=== PATIENT | female | born 2000 | race Caucasian/White ===

== ENCOUNTER 2022-04-20 05:35 | Inpatient (IN) ==
[2022-04-20] MEDS ORDERED: miSOPROStoL 25 MCG TABLET VG PRN (06:12)
[2022-04-20] MEDS ORDERED: Ondansetron 4 MG/2 ML VIAL IVP PRN (06:13)
[2022-04-20] MEDS ORDERED: Famotidine 20 MG/2 ML VIAL IVP PRN (06:13)
[2022-04-20] MEDS ORDERED: *HR* Nalbuphine 10 MG/ML AMPUL IV PRN (06:13)
[2022-04-20] MEDS ORDERED: Metoclopramide 10 MG/2 ML VIAL IVP PRN (06:13)
[2022-04-20] MEDS ORDERED: Lidocaine 1% 20 ML MDV INFILT PRN (06:13)
[2022-04-20] MEDS ORDERED: Penicillin G Potassium 5,000,000 UNIT in 0.9 % Sodium Chloride Mini Bag 100 ML IVPB ONE (06:13)
[2022-04-20] MEDS ORDERED: Azithromycin 500 MG in 0.9 % Sodium Chloride 250 ML IVPB PRN (06:13)
[2022-04-20] MEDS ORDERED: Naloxone 0.4 MG/ML INJ IVP PRN (06:13)
[2022-04-20] MEDS ORDERED: EPHEDrine 50 MG/ML VIAL IVP PRN (06:25)
[2022-04-20] MEDS: Ringers Solution, Lactated 1,000 ML IVC SCH ×3 (06:51→21:38)
[2022-04-20 07:04] LABS: Basophils % 0.3 %; Eosinophils # 0.1 K/mcL (0.0-0.6); Eosinophils % 1.1 %; Immature Granulocytes % 1.1 % (0-4); Lymphocytes # 2.8 K/mcL (0.6-4.6); Lymphocytes % 27.7 %; Mean Corpuscular HGB Conc 34.3 g/dL (31.6-35.5); Mean Corpuscular Volume 90.4 fL (83.0-100.0); Mean Platelet Volume 10.9 fL (9.4-12.4); Monocytes # 0.8 K/mcL (0.0-1.3); Monocytes % 8.1 %; Neutrophils # 6.2 K/mcL (1.6-8.9); Platelet Count 179 K/mcL (140-400); Red Blood Count 3.87 M/mcL (3.82-4.97); Red Cell Distribution Width 13.5 % (11.5-14.5); Segmented Neutrophils % 61.7 %
[2022-04-20 07:33] LABS: Influenza A PCR Negative (Negative); Influenza B PCR Negative (Negative); Resp. Syncytial Virus PCR Negative (Negative)
[2022-04-20 09:54] LABS: SARS-CoV-2 by PCR (In House) Positive (Negative)
[2022-04-20] MEDS: Penicillin G Potassium 2,500,000 UNIT/105 ML MLS IVPB SCH ×4 (10:46→22:49)
[2022-04-20 11:44] LABS: Amphetamine Screen,Urine Negative ng/mL (Cutoff=1000); Barbiturate Screen,Urine Negative ng/mL (Cutoff=200); Benzodiazepines Screen,Urine Negative ng/mL (Cutoff=200); Cannabinoid Screen,Urine Negative ng/mL (Cutoff = 50); Cocaine Screen,Urine Negative ng/mL (Cutoff= 300); Opiate Screen,Urine Negative ng/mL (Cutoff=300); Phencyclidine Screen,Urine Negative ng/mL (Cutoff=25)
[2022-04-20] MEDS ORDERED: miSOPROStoL 25 MCG TABLET PO STA (12:54)
[2022-04-20] MEDS ORDERED: Oxytocin 30 UNIT/503 ML BAG IVC SCH (17:15)
[2022-04-21] MEDS: Penicillin G Potassium 2,500,000 UNIT/105 ML MLS IVPB SCH ×4 (02:45→15:09)
[2022-04-21] MEDS: Ringers Solution, Lactated 1,000 ML IVC SCH ×2 (04:30→10:51)
[2022-04-21] MEDS: Epidural Premix (fent/bupiv) 110 ML EP SCH ×2 (04:31→11:03)
[2022-04-21] MEDS ORDERED: Lidocaine/EPI 1:200k 2% PF 20 ML VIAL ONE ×2 (09:24→16:07)
[2022-04-21] MEDS ORDERED: *HR* FentaNYL (PF) 100 MCG/2 ML VIAL ONE ×2 (09:24→16:08)
[2022-04-21] MEDS ORDERED: 0.9 % Sodium Chloride 1,000 ML ONE (10:00)
[2022-04-21] MEDS ORDERED: Ondansetron 4 MG/2 ML VIAL ONE (16:06)
[2022-04-21] MEDS ORDERED: Ketorolac 30 MG/ML VIAL ONE (16:06)
[2022-04-21] MEDS ORDERED: Acetaminophen IV 1,000 MG/100 ML BAG IVPB ONE (16:06)
[2022-04-21] MEDS ORDERED: *HR* Morphine Sulfate/PF 10 MG/10 ML AMPUL ONE (16:07)
[2022-04-21] MEDS ORDERED: Ringers Solution, Lactated 1,000 ML ONE ×2 (16:59→17:27)
[2022-04-21] MEDS ORDERED: Chloroprocaine 3%/PF 20 ML VIAL INFILT ONE (16:59)
[2022-04-21] MEDS ORDERED: Ketamine *HR* 500 MG/10 ML MDV ONE (17:00)
[2022-04-21] MEDS ORDERED: CeFAZolin Syr 2,000MG/20 ML 2,000 MG/20 ML SYRINGE IVPB ONE (17:00)
[2022-04-21] MEDS ORDERED: *HR* HYDROmorphone PF 0.5 MG/0.5 ML SYRINGE IVP PRN (17:50)
[2022-04-21] MEDS ORDERED: Promethazine 6.25 MG in Water for inj. (sterile) 20 ML IVPB PRN (17:50)
[2022-04-21] MEDS ORDERED: *HR* Labetalol 20 MG/4 ML SYRINGE IVP PRN (17:50)
[2022-04-21] MEDS ORDERED: Oxytocin 30 UNIT/503 ML BAG IVC SCH (21:03)
[2022-04-21] MEDS ORDERED: Simethicone 80 MG TAB.CHEW PO PRN (21:03)
[2022-04-21] MEDS ORDERED: Ondansetron 4 MG/2 ML VIAL IVP PRN (21:03)
[2022-04-21] MEDS ORDERED: Rho Immune Globulin 1,500 UNIT SYRINGE IM ONE (21:03)
[2022-04-22] MEDS: Ibuprofen 600 MG TABLET PO SCH ×4 (00:45→21:20)
[2022-04-22] MEDS: metroNIDAZOLE 500 MG TABLET PO SCH ×4 (00:46→21:20)
[2022-04-22] MEDS: cephALEXin 500 MG CAPSULE PO SCH ×4 (00:46→21:20)
[2022-04-22] MEDS: Acetaminophen 325 MG TABLET PO SCH ×4 (00:46→21:21)
[2022-04-22 05:45] LABS: Basophils % 0.3 %; Eosinophils # 0.1 K/mcL (0.0-0.6); Eosinophils % 0.3 %; Hematocrit 22.8 % (35.3-44.9); Immature Granulocytes % 0.6 % (0-4); Lymphocytes # 2.5 K/mcL (0.6-4.6); Lymphocytes % 16.1 %; Mean Corpuscular HGB Conc 32.9 g/dL (31.6-35.5); Mean Corpuscular Hemoglobin 30.6 pg (28.0-33.3); Mean Corpuscular Volume 93.1 fL (83.0-100.0); Monocytes # 1.5 K/mcL (0.0-1.3); Monocytes % 9.7 %; Neutrophils # 11.5 K/mcL (1.6-8.9); Platelet Count 149 K/mcL (140-400); Red Blood Count 2.45 M/mcL (3.82-4.97); Red Cell Distribution Width 13.6 % (11.5-14.5)
[2022-04-22 05:54] LABS: Basophils # 0.1 K/mcL (0.0-0.2); White Blood Count 15.7 K/mcL (4.3-11.1)
[2022-04-22 05:55] LABS: Hemoglobin 7.5 g/dL (11.5-15.4)
[2022-04-22] MEDS: Prenatal Vit/FA 1 EACH TABLET PO SCH (08:36)
[2022-04-22] MEDS: *HR* OxyCODONE Immed Rel 5 MG TABLET PO PRN ×2 (08:38→16:01)
[2022-04-22] MEDS ORDERED: Ringers Solution, Lactated 1,000 ML ONE (16:46)
[2022-04-23] MEDS: *HR* OxyCODONE Immed Rel 5 MG TABLET PO PRN (01:36)
[2022-04-23] MEDS: Ibuprofen 600 MG TABLET PO SCH ×3 (04:50→13:50)
[2022-04-23] MEDS: Acetaminophen 325 MG TABLET PO SCH ×3 (04:50→13:50)
[2022-04-23 07:13] VITALS: BP 101/64; PULSE 97; TEMP 97.9; O2SAT 98
[2022-04-23] MEDS ORDERED: Sodium Ferric Gluconat/Sucrose 125 MG in 0.9 % Sodium Chloride 100 ML IVPB ONE (08:05)
[2022-04-23] MEDS: Prenatal Vit/FA 1 EACH TABLET PO SCH (08:53)
[2022-04-23] MEDS: metroNIDAZOLE 500 MG TABLET PO SCH (08:53)
[2022-04-23] MEDS: cephALEXin 500 MG CAPSULE PO SCH (08:54)
[2022-04-23 09:34] LABS: Basophils % 0.3 %; Eosinophils # 0.1 K/mcL (0.0-0.6); Eosinophils % 1.2 %; Hematocrit 20.9 % (35.3-44.9); Immature Granulocytes % 1.1 % (0-4); Lymphocytes # 2.5 K/mcL (0.6-4.6); Lymphocytes % 23.5 %; Mean Corpuscular HGB Conc 33.5 g/dL (31.6-35.5); Mean Corpuscular Hemoglobin 31.1 pg (28.0-33.3); Mean Corpuscular Volume 92.9 fL (83.0-100.0); Mean Platelet Volume 10.7 fL (9.4-12.4); Monocytes # 0.8 K/mcL (0.0-1.3); Monocytes % 7.1 %; Neutrophils # 7.2 K/mcL (1.6-8.9); Platelet Count 166 K/mcL (140-400); Red Blood Count 2.25 M/mcL (3.82-4.97); Segmented Neutrophils % 66.8 %; White Blood Count 10.8 K/mcL (4.3-11.1)
== END 2022-04-23 14:32 | disposition home or self-care (01) | DRG 540 ==
LOC: 1NENULAB 05:35 → 1NENUOBS 04-21 21:02
PROVIDERS: ADMIT Registered Nurse; ATTEND Registered Nurse